=== PATIENT | male | born 1985 | race Hispanic/Latino ===

== ENCOUNTER 2020-03-11 20:12 | Emergency (ER) | payer SELFPAY ==
[2020-03-11] MEDS ORDERED: Lorazepam 0.5 MG TAB ONE (20:53)
[2020-03-11 21:00] LABS: #Basophils 0.1 thou/uL (0.0-0.2); #Eosinphils 0.3 thou/uL (0.0-0.7); #Lymphocytes 3.7 thou/uL (1.20-3.40); #Monocytes 0.7 thou/uL (0.11-0.59); #Neutrophils 6.6 thou/uL (1.40-6.50); %Basophils 0.8 % (0.0-1.0); %Eosinophils 2.4 % (0.0-10.0); %Lymphocytes 32.9 % (21.0-51.0); %Monocytes 5.7 % (0.0-10.0); %Neutrophils 58.2 % (42.0-75.0); Hemoglobin 16.4 g/dL (14.0-18.0); Mean Corpuscular Hemoglobin 29.7 pg (27.0-31.0); Mean Corpuscular Volume 89.9 fL (78.0-98.0); Mean Platelet Volume 10.5 fL (7.4-10.4); Platelet Count 238 thou/uL (130-400); RBC Distribution Width 12.7 % (11.5-14.5); Red Blood Cell (RBC) Count 5.53 mill/uL (4.70-6.10); White Blood Cell (WBC) Count 11.4 thou/uL (4.8-10.8)
[2020-03-11 21:01] LABS: MDiff Complete? YES; Manual Diff?? NO
[2020-03-11 21:14] LABS: ALT (SGPT) 30 U/L (8-55); AST (SGOT) 19 U/L (5-34); Albumin 4.6 g/dL (3.5-5.0); Alkaline Phosphatase 100 U/L (40-110); Anion Gap 17 mmol/L (10-20); BUN (Urea Nitrogen) 12 mg/dL (8.9-20.6); Bilirubin, Total 0.3 mg/dL (0.2-1.2); Calc. Creatinine Clearance 0 mL/min (70-130); Calcium 9.5 mg/dL (7.8-10.44); Carbon Dioxide 23 mmol/L (22-29); Chloride 105 mmol/L (98-107); Estimated GFR-MDRD 88; Globulin 4.2 g/dL (2.4-3.5); Glucose 99 mg/dL (70-105); Potassium 3.7 mmol/L (3.5-5.1); Protein, Total 8.8 g/dL (6.0-8.3); Sodium 141 mmol/L (136-145)
--- NOTE | 2020-03-11 21:59 | RAD ---
PORTABLE CHEST: Date: 03-11-2020 An AP portable film at 2101 is compared with an 10-12-19 study. FINDINGS: The heart is normal in size and the lungs are clear. Minimal left basilar haziness is thought to be d ue to overlying soft tissues and being turned slightly. There is no congestion or edema. IMPRESSION: No acute finding. POS: HOME
== END 2020-03-11 22:05 | disposition home or self-care (01) ==
LOC: BURERS 20:12
DX: F41.9 Anxiety disorder, unspecified (principal); F17.210 Nicotine dependence, cigarettes, uncomplicated
CPT/HCPCS: 71045; 80053; 84484; 85025; 93005

== ENCOUNTER 2021-03-06 14:42 | Emergency (ER) | payer OTHER, SELFPAY ==
[2021-03-07 02:26] LABS: SARS-CoV-2 PCR by NAA Not Detected (NotDetected)
== END 2021-03-06 15:30 | disposition home or self-care (01) ==
LOC: BURERS 14:42
DX: R51.9 Headache, unspecified (principal); R09.81 Nasal congestion; R06.02 Shortness of breath; R07.89 Other chest pain; F17.210 Nicotine dependence, cigarettes, uncomplicated; Z20.822 Contact with and (suspected) exposure to COVID-19
CPT/HCPCS: 87635; 99283; U0003; U0005

== ENCOUNTER 2021-05-14 19:47 | Emergency (ER) | payer OTHER, SELFPAY | END 2021-05-14 20:36 | disposition home or self-care (01) | LOC: BURERS 19:47 | DX: H61.21 Impacted cerumen, right ear (principal); F17.210 Nicotine dependence, cigarettes, uncomplicated | CPT/HCPCS: 99282 ==